=== PATIENT | male | born 1940 | race African-American/Black ===

== ENCOUNTER 2019-06-17 21:32 | Emergency (ER) | payer OTHER, MEDICAID ==
[~2019-06-17] VITALS: Ht 177.8 cm; Wt 82.0 kg
[2019-06-17] MEDS ORDERED: ONDANSETRON HCL 4MG/2ML INJ IV STA (23:07)
[2019-06-17] MEDS ORDERED: DEXTROSE 5% WATER 1,000 ML IV ONE (23:07)
[2019-06-17 23:52] LABS: BASOPHILS % 0.5 % (0.0-2.0); EOSINOPHILS % 2.3 % (0.0-5.0); HEMATOCRIT. 44.5 % (42.0-52.0); HEMOGLOBIN. 14.9 g/dL (14.0-18.0); LYMPHOCYTES % 28.5 % (20.0-50.0); MEAN CORPUSCULAR VOLUME 89.6 fL (80.0-94.0); MEAN PLATELET VOLUME 9.8 fl (7.4-10.4); MONOCYTES % 7.4 % (2.0-8.0); NEUTROPHILS % 61.3 % (40.0-76.0); PLATELET 108 x1000/uL (130-400); RED BLOOD CELL COUNT 4.96 mill/uL (4.7-6.1); RED CELL DISTRIBUTION WIDTH 14.8 % (11.6-14.6)
[2019-06-17 23:55] LABS: CLARITY URINE CLEAR (CLEAR); COLOR URINE DARK YELLOW (YELLOW); KETONES URINE TRACE (NEGATIVE); LEUKOCYTE ESTERASE URINE TRACE (NEGATIVE); NITRITE URINE NEGATIVE (NEGATIVE); OCCULT BLOOD URINE NEGATIVE (NEGATIVE); PH URINE 5.5 (4.5-8.0); PROTEIN URINE TRACE (NEGATIVE); SPECIFIC GRAVITY URINE 1.029 (1.005-1.030)
[2019-06-17 23:59] LABS: CHLORIDE 104 mEq/L (98-107)
[2019-06-18] MEDS ORDERED: DEXTROSE 50% WATER 50ML SYRINGE IV ONE (02:00)
[2019-06-18 06:10] VITALS: BP 132/69
== END 2019-06-18 06:57 | disposition home or self-care (01) ==
LOC: ER 21:57
DX: E11.649 Type 2 diabetes mellitus with hypoglycemia without coma (principal); G93.49 Other encephalopathy; I10 Essential (primary) hypertension; I69.328 Other speech and language deficits following cerebral infarction; E78.00 Pure hypercholesterolemia, unspecified; H91.90 Unspecified hearing loss, unspecified ear; Z79.4 Long term (current) use of insulin
CPT/HCPCS: 36415; 70450; 71045; 80053; 81003; 82140; 82962; 83605; 83690; 84484; 85025; 93005; 96361; 96374; 96375; 99284; J2405; J7070

== ENCOUNTER 2020-05-09 19:54 | Emergency (ER) | payer OTHER, MEDICAID ==
[2020-05-09 20:49] LABS: BASOPHILS % 0.6 % (0.0-2.0); EOSINOPHILS % 2.8 % (0.0-5.0); HEMATOCRIT. 46.9 % (42.0-52.0); HEMOGLOBIN. 15.8 g/dL (14.0-18.0); LYMPHOCYTES % 24.6 % (20.0-50.0); MEAN CORPUSCULAR HEMOGLOBIN 30.7 pg (28.0-32.0); MEAN CORPUSCULAR VOLUME 91.3 fL (80.0-94.0); MEAN PLATELET VOLUME 10.5 fl (7.4-10.4); MONOCYTES % 8.2 % (2.0-8.0); NEUTROPHILS % 63.8 % (40.0-76.0); PLATELET 169 x1000/uL (130-400); RED BLOOD CELL COUNT 5.13 mill/uL (4.7-6.1); RED CELL DISTRIBUTION WIDTH 14.6 % (11.6-14.6)
[2020-05-09 20:55] LABS: INR 0.9; PROTHROMBIN TIME 10.2 sec (9.6-11.0)
[2020-05-09 20:56] LABS: CHLORIDE 105 mEq/L (98-107)
[2020-05-09 21:00] LABS: ETHANOL BLOOD < 10 mg/dL
[2020-05-09 21:03] LABS: LDL CHOLESTEROL 52 mg/dL (5-100)
[2020-05-09] MEDS ORDERED: ASPIRIN 325MG EC TABLET PO ONE (21:45)
[2020-05-10 02:38] VITALS: BP 150/70
== END 2020-05-10 03:11 | disposition short-term general hospital (02) ==
LOC: ER 19:54 → EDBEDREQ 20:58 → CANBEDREQ 23:53 → ER 05-10 03:11
DX: I63.9 Cerebral infarction, unspecified (principal); E11.9 Type 2 diabetes mellitus without complications; Z86.73 Personal history of transient ischemic attack (TIA), and cerebral infarction without residual deficits
CPT/HCPCS: 36415; 71045; 80053; 80320; 82962; 83721; 84484; 85025; 93005; 99285; G0480